=== PATIENT | female | born 1945 | race Caucasian/White ===

== ENCOUNTER 2018-04-10 05:40 | Day surgery (SDC) | payer MEDICARE ==
[2018-04-10] VITALS (9 sets, daily range): BP systolic 96–154; BP diastolic 45–83
[~2018-04-10] VITALS: Ht 154.9 cm; Wt 85.2 kg
[~2018-04-10 05:40] MED LIST: AEC81 PO; ALLO300T2 PO; LEVO75TA10 PO; LOSA25TA16 PO; LUBI24CA2 PO; METO-408 PO; OMEP-272 PO; SIMV20TA6 PO
[2018-04-10] MEDS ORDERED: SODIUM CHLORIDE 0.9% 1000ML 1,000 ML IV ONE (05:55)
[2018-04-10] MEDS ORDERED: PROPOFOL 10 MG/ML 20ML VIAL IV ONE (06:33)
[2018-04-10] MEDS ORDERED: LIDOCAINE HCL 2% 20ML ONE (06:34)
[2018-04-10] MEDS ORDERED: GLYCOPYRROLATE 0.2 MG/ML 5 ML VIAL ONE (06:34)
== END 2018-04-10 07:25 | disposition home or self-care (01) ==
LOC: ENDO 05:40 → DAH 05:40 → ENDO 07:25
PROVIDERS: ATTEND Internal Medicine
DX: K83.8 Other specified diseases of biliary tract (principal); K31.89 Other diseases of stomach and duodenum; E78.00 Pure hypercholesterolemia, unspecified; I10 Essential (primary) hypertension; E03.9 Hypothyroidism, unspecified; M19.90 Unspecified osteoarthritis, unspecified site; Z86.010 Personal history of colon polyps; B02.9 Zoster without complications; C85.90 Non-Hodgkin lymphoma, unspecified, unspecified site; Z90.49 Acquired absence of other specified parts of digestive tract; Z90.710 Acquired absence of both cervix and uterus; Z98.49 Cataract extraction status, unspecified eye; Z98.890 Other specified postprocedural states; Z68.36 Body mass index [BMI] 36.0-36.9, adult; Z79.899 Other long term (current) drug therapy; K44.9 Diaphragmatic hernia without obstruction or gangrene; K57.30 Diverticulosis of large intestine without perforation or abscess without bleeding; K29.70 Gastritis, unspecified, without bleeding
CPT/HCPCS: 43237; 93005; A4606; J2704; J3490 ×2; J7030; 43232

== ENCOUNTER → 2019-11-01 | Outpatient (CLI) | payer MEDICARE ==
[~2019-11-01] MED LIST changes: -LOSA25TA16 PO; +LOSA25TA41 PO; +SIMV-43 PO; -SIMV20TA6 PO
== END ==
LOC: CANPRESDC → DAH 10:00 → EDSTATUS 11-08 09:30
PROVIDERS: ATTEND Internal Medicine
DX: Z01.818 Encounter for other preprocedural examination (principal); R93.3 Abnormal findings on diagnostic imaging of other parts of digestive tract; Z11.59 Encounter for screening for other viral diseases
CPT/HCPCS: 36415; U0003

== ENCOUNTER 2020-11-25 06:16 | Day surgery (SDC) | payer MEDICARE ==
[~2020-11-25] VITALS: Ht 152.4 cm; Wt 87.1 kg
[~2020-11-25 06:16] MED LIST changes: +ALBU0.63 IH; +BACL5TAB PO; -LUBI24CA2 PO
[2020-11-25] MEDS ORDERED: 0.9%NACL 1000ML 1,000 ML IV ONE (06:19)
[2020-11-25 07:00] VITALS: BP 170/88
[2020-11-25] MEDS ORDERED: PROPOFOL 10 MG/ML 20ML VIAL IV ONE (08:35)
[2020-11-25 09:15] VITALS: BP 135/63
[2020-11-25 09:20] VITALS: BP 141/70
[2020-11-25 09:25] VITALS: BP 138/63
== END 2020-11-25 09:55 | disposition home or self-care (01) ==
LOC: ENDO 06:16 → DAH 06:16 → ENDO 09:55
PROVIDERS: ATTEND Internal Medicine
DX: Z09 Encounter for follow-up examination after completed treatment for conditions other than malignant neoplasm (principal); Z20.822 Contact with and (suspected) exposure to COVID-19; K57.30 Diverticulosis of large intestine without perforation or abscess without bleeding; K64.0 First degree hemorrhoids; K44.9 Diaphragmatic hernia without obstruction or gangrene; K31.89 Other diseases of stomach and duodenum; K83.8 Other specified diseases of biliary tract; K29.70 Gastritis, unspecified, without bleeding; I10 Essential (primary) hypertension; E78.00 Pure hypercholesterolemia, unspecified; E78.5 Hyperlipidemia, unspecified; M19.90 Unspecified osteoarthritis, unspecified site; Z90.710 Acquired absence of both cervix and uterus; Z90.49 Acquired absence of other specified parts of digestive tract; Z90.89 Acquired absence of other organs; Z98.49 Cataract extraction status, unspecified eye; Z72.89 Other problems related to lifestyle; Z86.010 Personal history of colon polyps; Z98.890 Other specified postprocedural states; Z79.899 Other long term (current) drug therapy
CPT/HCPCS: 43239; 43259; 45378; 87635; 93005; A4215 ×3; A4221; A4222; A4223; A4606; A4620; A4657; A4663; C9803; J2704; J7030; 43253

== ENCOUNTER → 2020-12-18 | Outpatient (CLI) | payer MEDICARE | END | disposition home or self-care (01) | LOC: RAH 14:09 | PROVIDERS: ATTEND Internal Medicine Pulmonary Disease | DX: J84.10 Pulmonary fibrosis, unspecified (principal) | CPT/HCPCS: 71250 ==

== ENCOUNTER → 2023-01-12 | Outpatient (CLI) | payer MEDICARE | END | disposition home or self-care (01) | LOC: RAH 13:00 | PROVIDERS: ATTEND Internal Medicine Hematology & Oncology | DX: R59.0 Localized enlarged lymph nodes (principal) | CPT/HCPCS: 76536 ==

== ENCOUNTER 2024-04-24 10:50 | Emergency (ER) | payer MEDICARE ==
[~2024-04-24] VITALS: Ht 149.9 cm; Wt 73.9 kg
--- NOTE | 2024-04-24 11:48 | HMCIMG ---
Exam Type: KNEE 3VWS LT Clinical Information: fall Comparison: None Findings: Routine views of the knee are without evidence of fracture, dislocation, arthritic, or bony acute change. Prepatellar subcutaneous soft tissue swelling is seen suggestive of a hematoma. There is status post knee replacement with adequate visualization and alignment of bony and hardware elements. No complications are seen. There are vascular calcifications. The joint space is well maintained and there is no effusion. IMPRESSION: Status post knee replacement. Prepatellar subcutaneous soft tissue swelling is seen suggestive of a hematoma.
--- NOTE | 2024-04-24 12:03 | HMCIMG ---
Exam Type: CT cervical spine without contrast Clinical Information: fall frontal hematoma Comparison: None Technique: Spiral axial images were performed from the base of the skull down to the thoracic vertebral bodies. Both sagittal and coronal reconstructions were performed. CT Dose Index (CTDI): 12.85 mGy Dose Length Product (DLP): 282.6 total Findings: There are degenerative changes. Degenerative disc disease is noted at multiple levels. There is reversal of normal cervical lordosis consistent with degeneration and spasm. There are no fractures. There is facet hypertrophy at multiple levels. IMPRESSION: Degenerative changes as noted. No acute pathology. No fractures seen. This study was performed using dose reduction techniques to include automated exposure control and/or adjustment of the mA and/or kV according to patient size.
--- NOTE | 2024-04-24 12:03 | HMCIMG ---
Exam Type: CT HEAD/BRAIN W/O CONTRAST Clinical Information: fall frontal hematoma Comparison: None CT Dose Index (CTDI): 57.33 mGy Dose Length Product (DLP): 956.79 total mGy-cm Findings: The examination shows atrophy. There is low attenuation throughout the periventricular white matter locations, consistent with chronic small vessel ischemic changes. No acute intra- or extra-axial fluid collections are seen. There is no evidence of acute or chronic hemorrhage. There is no mass effect or shift of midline structures. There are no areas to suggest acute infarct. The skull windows show no significant abnormalities. IMPRESSION: 1. ATROPHY AND CHRONIC SMALL VESSEL ISCHEMIC CHANGES. This study was performed using dose reduction techniques to include automated exposure control and/or adjustment of the mA and/or kV according to patient size.
--- NOTE | 2024-04-24 12:25 | ERN ---
ED Note History of Present Illness Stated Complaint: NECK PAIN POST FALL-STANDING POSITION Chief Complaint: Mechanical Fall Time Seen by MD: 10:55 Dictation: This 78-year-old female was brought in by EMS in a cervical collar after experiencing a face forward fall in her kitchen when she tripped because her tennis shoe caught on the tile. She fell forward hitting herself on the side of the revenue officer and then onto the floor. She did not experience any prodromal symptoms and was not dizzy or lightheaded after the fall. There was no loss of consciousness. The patient has a hematoma on the head and a small abrasion on the bridge of the nose as well as some neck pain and pain in the left knee where she has a large amount of swelling at the site of a previous knee replacement. She has no distal weakness, numbness or tingling in any extremity and notices full range of motion in all extremities. There was no chest pain in the ribs or substernal chest pressure and there was no abdominal or genitourinary complaint. The patient's usual medications include levothyroxine, gabapentin, metoprolol, Zocor, nebulizer p.r.n., and ranolazine. The patient takes Prilosec p.r.n. and took an aspirin today because of a headache she had when she 1st woke up. The patient does not smoke drink use recreational drugs. She lives at home with her family Allergies: Coded Allergies: adhesive tape (Unverified Allergy, Rash, 11/20/12) aliskiren hemifumarate (Unverified Allergy, Headache and rash , 11/17/12) amlodipine besylate (Unverified Allergy, Rash and leg swelling, 11/20/12) valsartan (Unverified Allergy, Headache and rash, 11/17/12) zolpidem tartrate (Unverified Allergy, Depression, made her cry all the time, 11/17/12) Home Meds Reported Medications Albuterol Sulfate (Albuterol Sulfate) 0.63 Mg/3 Ml Vial.neb, 0.63 MG IH BID, INH 11/24/20 Baclofen (Baclofen) 5 Mg Tablet, 5 MG PO BID, TAB 11/24/20 Omeprazole Magnesium (Omeprazole Magnesium) 20 Mg Capsule.dr, 20 MG PO DAILY, CAP 04/07/18 Aspirin (ASPIRIN 81 MG ECTAB) 81 Mg Ectab, 81 MG PO DAILY, TAB.EC 04/07/18 Allopurinol (Allopurinol) 300 Mg Tablet, 300 MG PO AM, TAB 04/07/18 Simvastatin (Simvastatin) 20 Mg Tablet, 20 MG PO PM, TAB 04/07/18 Metoprolol Succinate (Metoprolol Succinate) 25 Mg Tab.er.24h, 12.5 MG PO DAILY, TAB 04/07/18 Losartan Potassium (Losartan Potassium) 25 Mg Tablet, 12.5 MCG PO AM, TAB 04/07/18 Levothyroxine Sodium (Levothyroxine Sodium) 75 Mcg Tablet, 75 MCG PO AM, TAB 04/07/18 Past Medical History Past Medical History: High Cholesterol, Heart Disease, Hypertension, Pneumonia Additional Past Medical Hx: THYROID ISSUES, BRONCHIECTASIS, CATARAC Surgical History: Appendectomy, Hysterectomy, Cholecystectomy, Other Surgical History Other: L KNEE SURGERY, CATARAC SURGERY RN Note Reviewed/Agreed w/PFSH: Yes Review of System Dictation All pertinent systems reviewed, negative except as documented in the HPI The ROS is obtained from patient GENERAL/CONSTITUTIONAL: Negative except as documented in HPI. ENT: Negative except as documented in HPI. CARDIOVASCULAR: Negative except as documented in HPI. RESPIRATORY: Negative except as documented in HPI. GASTROINTESTINAL: Negative except as documented in HPI. GENITOURINARY: Negative except as documented in HPI. MUSCULOSKELETAL: Negative except as documented in HPI. SKIN: Negative except as documented in HPI. NEUROLOGIC: Negative except as documented in HPI. Initial Vital Sign VS Vital Signs Date Time Temp Pulse Resp B/P (MAP) Pulse Ox O2 Delivery O2 Flow Rate FiO2 04/24/24 10:52 98.4 68 17 131/81 100 Room Air 0 04/24/24 11:24 21 Physical Exam Dictation VITAL SIGNS: note is made of triage vital signs CONSTITUTIONAL: This is an alert smiling patient who is appropriately interactive but has a large hematoma on the forehead. HEAD: There is a large hematoma in the left forehead and a small abrasion over the bridge of the nose. There was no Middleton's or raccoon's and no bony instability. No epistaxis EYES: The patient has arcus senilis. There was no periorbital trauma ENT: No nasal discharge noted. Posterior pharynx is without exudate, redness, swelling, masses, or evidence of obstruction. Uvula midline. Mucous membranes moist. NECK: Trachea is midline. No swelling. The patient is in a cervical collar. CHEST/AXILLA: Normal chest wall appearance and motion. No tenderness. No crepitus. CV: Normal rate, regular rhythm. No murmur. No edema. RESPIRATORY:Respiratory rate is normal. Bilateral equal breath sounds with good airflow. Normal breath sounds are noted. No rales, rhonchi or wheezes noted. No increased work of breathing, no retractions. ABDOMEN: Inspection normal. No distention is appreciated. Bowel sounds are normal. No mass or organomegaly is appreciated. There is no tenderness. No rebound. No rigidity. No voluntary or involuntary guarding. BACK: Inspection is normal. No midline tenderness is appreciated. The patient appears comfortable when moving. : No CVA tenderness or bladder tenderness. SKIN: Warm, dry, with normal turgor. Capillary refill less than 3 seconds. Normal color.No rash. No cellulitis or abscess. Hematoma of the forehead and left knee MS/Extremity: There is no calf tenderness. Baseline range of motion is noted in all 4 extremities. There there is a large hematoma in the left knee but she is able to flex and extend in the patella appears to be in correct position. NEURO: Awake and alert, lucid. Facies symmetric and speech is clear. Motor strength 5/5 in all extremities. Sensory grossly intact. PSYCH: Patient is appropriately attentive and cooperative without evidence of hallucination. Results (Laboratory/Radiology) X-RAY Comment: Institution : [facility] Accession No. : [id number] Patient : REGULO Loaiza 89 Creator : Dictator : Director Of Spa And Guest Experience : Hydraulic Lift Driver : CARLEE VILLAREAL Approver2 : Study : KNEE 3VWS LT Study Date : 04/24/2024 11:27:24 Report Date : [facility] [address] [place], [place] [id number] IMAGING REPORT Signed PATIENT: QUAN RAJPUT MR#: [id number] : 1945 SEX: F AGE: 78 LOCATION: [facility] ORDER 18 STATUS: REG ER [facility] REPORT#: [id number] SERVICE 16 REASON: fall ORDERING PHYSICIAN: MICHELLE AGUIRRE MD PROCEDURE: KNEE 3V LT - KNEE 3VWS LT Exam Type: KNEE 3VWS LT Clinical Information: fall Comparison: None Findings: Routine views of the knee are without evidence of fracture, dislocation, arthritic, or bony acute change. Prepatellar subcutaneous soft tissue swelling is seen suggestive of a hematoma. There is status post knee replacement with adequate visualization and alignment of bony and hardware elements. No complications are seen. There are vascular calcifications. The joint space is well maintained and there is no effusion. IMPRESSION: Status post knee replacement. Prepatellar subcutaneous soft tissue swelling is seen suggestive of a hematoma. DICTATED BY: CARLEE VILLAREAL MD DATE: 04/24/24 1145 ELECTRONICALLY SIGNED BY: CARLEE VILLAREAL MD DATE: 04/24/[address] Scan Comment: Institution : [facility] Accession No. : [id number] Patient : REGULO Loaiza Creator : Dictator : Director Of Spa And Guest Experience : Hydraulic Lift Driver : CARLEE VILLAREAL Approver2 : Study : CT CERVICAL SPINE W/O CONTRAST Study Date : 04/24/2024 11:48:39 Report Date : [facility] [address] [place], [place] [id number] IMAGING REPORT Signed PATIENT: QUAN RAJPUT MR#: [id number] : 1945 SEX: F AGE: 78 LOCATION: [facility] ORDER 18 STATUS: REG ER [facility] REPORT#: [id number] SERVICE 16 REASON: fall frontal hematoma ORDERING PHYSICIAN: MICHELLE AGUIRRE MD PROCEDURE: C SPIN WO - CT CERVICAL SPINE W/O CONTRAST Exam Type: CT cervical spine without contrast Clinical Information: fall frontal hematoma Comparison: None Technique: Spiral axial images were performed from the base of the skull down to the thoracic vertebral bodies. Both sagittal and coronal reconstructions were performed. CT Dose Index (CTDI): 12.85 mGy Dose Length Product (DLP): 282.6 total Findings: There are degenerative changes. Degenerative disc disease is noted at multiple levels. There is reversal of normal cervical lordosis consistent with degeneration and spasm. There are no fractures. There is facet hypertrophy at multiple levels. IMPRESSION: Degenerative changes as noted. No acute pathology. No fractures seen. This study was performed using dose reduction techniques to include automated exposure control and/or adjustment of the mA and/or kV according to patient size. DICTATED BY: CARLEE VILLAREAL MD DATE: 04/24/24 1200 ELECTRONICALLY SIGNED BY: CARLEE VILLAREAL MD DATE: 04/24/24 1203 Institution : [facility] Accession No. : [id number] Patient : REGULO Loaiza Creator : Dictator : Director Of Spa And Guest Experience : Hydraulic Lift Driver : CARLEE VILLAREAL Approver2 : Study : CT HEAD/BRAIN W/O CONTRAST Study Date : 04/24/2024 11:48:39 Report Date : [address] [address] IMAGING REPORT Signed PATIENT: QUAN RAJPUT MR#: [id number] : [birth year] SEX: F AGE: 78 LOCATION: [facility] ORDER STATUS: REG ER REPORT#: [id number] SERVICE 1117 REASON: fall frontal hematoma ORDERING PHYSICIAN: MICHELLE AGUIRRE MD PROCEDURE: HEAD WO - CT HEAD/BRAIN W/O CONTRAST Exam Type: CT HEAD/BRAIN W/O CONTRAST Clinical Information: fall frontal hematoma Comparison: None CT Dose Index (CTDI): 57.33 mGy Dose Length Product (DLP): 956.79 total mGy-cm Findings: The examination shows atrophy. There is low attenuation throughout the periventricular white matter locations, consistent with chronic small vessel ischemic changes. No acute intra- or extra-axial fluid collections are seen. There is no evidence of acute or chronic hemorrhage. There is no mass effect or shift of midline structures. There are no areas to suggest acute infarct. The skull windows show no significant abnormalities. IMPRESSION: 1. ATROPHY AND CHRONIC SMALL VESSEL ISCHEMIC CHANGES. This study was performed using dose reduction techniques to include automated exposure control and/or adjustment of the mA and/or kV according to patient size. DICTATED BY: CARLEE VILLAREAL MD DATE: 04/24/24 1159 ELECTRONICALLY SIGNED BY: CARLEE VILLAREAL MD DATE: 04/24/24 1203 ED Course ED Course Orders Procedure Category Date Status Time Ct Head/Brain W/O CT 04/24/24 Resulted Contrast 11:17 Ct Cervical Spine W/O CT 04/24/24 Resulted Contrast 11:17 Knee 3vws Lt RAD 04/24/24 Resulted 11:17 Apply Ice Pack To: CPOE 04/24/24 Transmitted (Er) 11:17 Acetaminophen 325 Tab PHA 04/24/24 Complete (Tylenol 325mg Tab 13:30 Current Medications Medications (Trade) Dose Ordered Sig/Kurtis Route PRN Reason Start Time Stop Time Status Last Admin Dose Admin Acetaminophen (TYLenol 325MG TAB) 650 mg ONCE ONCE PO 04/24/24 13:30 04/24/24 13:31 DC 04/24/24 13:13 Vital Signs Date Time Temp Pulse Resp B/P (MAP) Pulse Ox O2 Delivery O2 Flow Rate FiO2 04/24/24 13:51 98.4 63 16 189/79 100 Room Air* 0 21 04/24/24 11:24 98.4 63 16 189/79 99 Room Air* 0 21 04/24/24 10:52 98.4 68 17 131/81 100 Room Air 0 Medical Decision Making MDM INITIAL IMPRESSION Initial history and physical concerning for closed head injury, skull fracture, disruption of the left knee repair I have no index of suspicion for syncope or near-syncope or significant closed head injury but patient's predisposition to bruising mandate CT scan of the head Contributing medical problems: Multiple underlying problems, recent ingestion him aspirin I have reviewed the triage nursing notes and vital signs. The patient is afebrile with acceptable oxygen saturation, heart rate and blood pressure. Initial plan: Radiograph and CT DATA REVIEW I have reviewed additional NN, repeat VS, and monitoring where indicated. Heart rate, blood pressure, and O2 saturation are acceptable. [place] diagnostic results: No evidence of intracranial hemorrhage, bony fracture or disruption of the knee Other independent historian: Patient's daughters at the bedside Review of external data: None. ED COURSE Interventions: Patient has received Tylenol for pain. No fractures are iden tified. Reassessment: Patient feels well. Collar is removed DISPOSITION Final diagnostic impression: Mechanical fall with hematoma to the left knee and face I discussed my findings, clinical impression and treatment recommendations with patient and her daughter. I have reviewed the social factors contributing to the patient's presentation and disposition planning. My final plan for disposition was made based upon clinical findings, response to treatment and discussion with the patient regarding management options. Hospitalization is not indicated due to low risk of short term progression, complication, morbidity or mortality related to the current diagnosis At the time of discharge, the vital signs are within acceptable limits. Repeat examination: Evolving bruises over the left periorbital area without bony tenderness, increasing evidence of bruising over the lower lip and chin Exam of the back reveals no bruising. There was no point midline tenderness but the patient is sore in the low back and flank on the right Neurologically normal Patient has been able to take oral liquids. The discharge treatment plan includes general recommendations and symptomatic care. Incidental findings discussed: none Questions were invited and answered in layman's terms. I have emphasized my follow-up recommendations and reviewed ED return precautions. I have answered any questions in layman's terms. The patient understands that they will have to arrange for out-patient follow-up for recheck of today's condition. The patient is stable and appropriate for discharge from the ED. This dictation was prepared using [employer] voice recognition software. Occasional voice recognition errors may occur. When identified, these errors have been corrected. While every attempt is made to correct errors during dictation, errors may still exist. DX & DISP Disposition: Discharge Decision to Admit Date: Apr 24, 2024 Decision to Admit Time: 13:58 Departure Impression: Primary Impression: Traumatic hematoma of forehead Additional Impressions: Contusions and abrasions to the face, Hematoma of left knee region, Cervical strain, acute, Mechanical fall Condition: Stable Additional Instructions: Ice to bruises. Tylenol as needed for pain. Expect some increasing bruising over the next day or so. Return for changes in mental status, generalized weakness, vomiting or difficulty breathing. Continue your usual home medications. Activity as tolerated Referrals: PERLA FAY MD (PCP) Time of Disposition: 14:00 MICHELLE AGUIRRE MD Apr 24, 2024 12:25
[2024-04-24] MEDS: acetaMINOPHEN 325 MG TAB PO ONE (13:13)
[2024-04-24 13:51] VITALS: BP 189/79; PULSE 63; RESP 16; TEMP 98.4; O2SAT 100
--- NOTE | 2024-04-24 14:13 | NUR ---
PT STABLE AAOX4, PT IN NO DISTRESS , VITALS WNL NO C/O PAIN , PT GIVEN INSTRUCTIONS FOR HOME, PT IV D/C CATHETER INTACT, PT DRIVEN HOME BY DAUGHTER W/ PERSONAL BELONGINGS.
== END 2024-04-24 14:12 | disposition home or self-care (01) ==
LOC: EDH 10:50
DX: S16.1XXA Strain of muscle, fascia and tendon at neck level, initial encounter (principal); S00.83XA Contusion of other part of head, initial encounter; S00.81XA Abrasion of other part of head, initial encounter; S80.02XA Contusion of left knee, initial encounter; E78.00 Pure hypercholesterolemia, unspecified; I10 Essential (primary) hypertension; Z79.82 Long term (current) use of aspirin; Z79.899 Other long term (current) drug therapy; Z90.49 Acquired absence of other specified parts of digestive tract; Z90.710 Acquired absence of both cervix and uterus; Z96.659 Presence of unspecified artificial knee joint; W01.0XXA Fall on same level from slipping, tripping and stumbling without subsequent striking against object, initial encounter; Y93.89 Activity, other specified; Y92.89 Other specified places as the place of occurrence of the external cause; Y99.8 Other external cause status
CPT/HCPCS: 70450; 72125; 73562; 99284

== ENCOUNTER → 2024-05-17 | Outpatient (CLI) | payer MEDICARE ==
[~2024-05-17] MED LIST changes: +IOHEXOL-350 75 ML VIAL IV ONE
--- NOTE | 2024-05-17 12:32 | HMCIMG ---
CT ANGIO NECK REASON: OCCLUSION AND STENOSIS OF RIGHT CAROTID ARTERY COMPARISON: None TECHNIQUE: Images are obtained from aortic arch to the skull base before and after bolus IV contrast infusion, 75 cc Omnipaque 350. 2-D and 3-D multiplanar reconstruction images were then performed. FINDINGS: There is normal appearance of the aortic arch. Great vessel origins from the arch are widely patent. Common carotid arteries appear unremarkable. There is mild plaque in both carotid bifurcations. There is no evidence of focal narrowing of either the right or the left common carotid artery. Both internal carotid arteries are widely patent as well. The internal carotid arteries are patent to the level of the skull base and paimiut of [place]. There is a balanced vertebral artery system. Both are patent to the basilar confluence. IMPRESSION: 1. Mild plaque in both carotid bifurcations. 2. Otherwise unremarkable exam, common and internal carotid arteries appear widely patent as do both vertebral arteries.
== END | disposition home or self-care (01) ==
LOC: RAH 10:21
PROVIDERS: ATTEND Family Medicine
DX: I65.23 Occlusion and stenosis of bilateral carotid arteries (principal)
CPT/HCPCS: 70498; Q9967

== ENCOUNTER → 2024-06-12 | Outpatient (CLI) | payer MEDICARE ==
[~2024-06-12] MED LIST changes: -IOHEXOL-350 75 ML VIAL IV ONE
[2024-06-12 16:52] LABS: CREATININE 0.7 mg/dL (0.5-1.0); POTASSIUM 4.8 mmol/L (3.5-5.1)
== END | disposition home or self-care (01) ==
LOC: LAB 15:41
PROVIDERS: ATTEND Internal Medicine Cardiovascular Disease
DX: I10 Essential (primary) hypertension (principal)
CPT/HCPCS: 36415; 80048